=== PATIENT | female | born 1980 | race Caucasian/White ===

== ENCOUNTER 2019-08-04 12:38 | Emergency (ER) | payer OTHER ==
[2019-08-04 12:53] VITALS: BMI 23.6
[2019-08-04] MEDS ORDERED: ACETAMINOPHEN 325 MG TABLET (FP) PO ONE (13:07)
--- NOTE | 2019-08-04 13:18 | PDOC ---
History of Present Illness - General Chief Complaint: Cold Symptoms Stated Complaint: HEADACHE/BACKPAIN Time Seen by Provider: 08/04/19 12:58 History Source: Patient - History of Present Illness Timing/Duration: reports: yesterday Past History - Past Medical History Allergies/Adverse Reactions: Allergies Allergy/AdvReac Type Severity Reaction Status Date / Time No Known Allergies Allergy Verified 09/24/12 13:14 Home Medications: Ambulatory Orders Albuterol Sulfate Inhaler - [Ventolin HFA Inhaler -] 2 inh IH Q4H PRN #1 inh 01/30 Oseltamivir Phosphate [Tamiflu] 75 mg PO BID #10 capsule 09/24/12 Oseltamivir Phosphate [Tamiflu] 75 mg PO BID 5 Days #10 capsule 08/04/19 COPD: No - Surgical History Abdominal Surgery: Yes (MASS REMOVED BETWEEN URTERUS AND OVARY 07/24/12) - Immunization History Immunization Up to Date: No - Psycho Social/Smoking Cessation Hx Smoking Status: Yes Smoking History: Never smoked Have you smoked in the past 12 months: No Number of Cigarettes Smoked Daily: 8 Information on smoking cessation initiated: No Hx Alcohol Use: No Drug/Substance Use Hx: No Review of Systems - Review of Systems Constitutional: Yes: Fever, Malaise Respiratory: No: Shortness of Breath Cardiac (ROS): No: Chest Pain ABD/GI: No: Diarrhea, Nausea, Vomiting *Physical Exam - Vital Signs Last Vital Signs Temp Pulse Resp BP Pulse Ox 103 F H 122 H 18 117/63 98 08/04/19 12:50 08/04/19 12:50 08/04/19 12:50 08/04/19 12:50 08/04/19 12:50 - Physical Exam General Appearance: Yes: Appropriately Dressed, Mild Distress HEENT: positive: Normal ENT Inspection, Normal Voice, TMs Normal, Pharynx Normal. negative: Scleral Icterus (R), Scleral Icterus (L) Neck: positive: Supple. negative: Lymphadenopathy (R), Lymphadenopathy (L) Respiratory/Chest: positive: Lungs Clear, Normal Breath Sounds. negative: Respiratory Distress Cardiovascular: positive: Regular Rate, S1, S2 Integumentary: positive: Dry, Warm Neurologic: positive: Fully Oriented, Alert, Normal Mood/Affect ED Treatment Course - Medications Given in the ED: ED Medications Discontinued Medications Generic Name Dose Route Start Last Admin Trade Name Freq PRN Reason Stop Dose Admin Acetaminophen 650 mg 08/04/19 13:07 08/04/19 13:08 Tylenol - PO 08/04/19 13:08 650 mg NOW ONE Administration Medical Decision Making - Medical Decision Making 08/04/19 13:17 39-year-old female no significant history here with malaise with body aches fever and chills since last night. No cough shortness of breath or chest pain. Son w/ similar sxs see exam viral syndrome, r/o flu -tylenol given for T of 103 08/04/19 14:49 Flu +. Rpt vitals improved. Dc w/ supportive tx and tamiflu. Discharge - Discharge Information Problems reviewed: Yes Clinical Impression/Diagnosis: Influenza Condition: Improved Disposition: HOME - Additional Discharge Information Prescriptions: Oseltamivir Phosphate [Tamiflu] 75 mg PO BID 5 Days #10 capsule - Follow up/Referral - Patient Discharge Instructions Patient Printed Discharge Instructions: Influenza Additional Instructions: Rest, maintain adequate hydration and take medications as directed - Post Discharge Activity Work/Back to School Note: Back to Work
[2019-08-04 14:53] VITALS: BP 100/70; PULSE 114; TEMP 99.9
== END 2019-08-04 14:54 | disposition home or self-care (01) ==
LOC: JERFT 12:38
DX: J11.1 Influenza due to unidentified influenza virus with other respiratory manifestations (principal)
CPT/HCPCS: 87804; 99282-25